=== PATIENT | female | born 1990 | race Caucasian/White ===

== ENCOUNTER → 2017-07-13 | Outpatient (CLI) | payer OTHER ==
[2014-04-19 12:26] VITALS: BMI 29.4
[~2017-07-13] MED LIST: DOCU240C67 PO; Ibuprofen PO; Lanolin TP; PER PO; PREN-127 PO
[2017-07-13 14:42] LABS: PLATELET COUNT, AUTOMATED 249 K/uL (150-450)
== END ==
LOC: LAB 14:14
PROVIDERS: ATTEND Obstetrics & Gynecology
DX: Z34.91 Encounter for supervision of normal pregnancy, unspecified, first trimester (principal)
CPT/HCPCS: 36415; 85025; 86592; 86762; 86850; 86900; 86901; 87088; 87340

== ENCOUNTER → 2017-11-02 | Outpatient (CLI) | payer OTHER ==
[2014-04-19 12:26] VITALS: BMI 29.4
--- NOTE | 2017-11-02 15:27 | RADIOLOGY IMAGING REPORT ---
FACILITY: [facility] - [place] PATIENT NAME: Georgina De La Rosa : 1990 MR: [id number] V: [id number] EXAM DATE: ORDERING PHYSICIAN: PRASHANT POWER TECHNOLOGIST: Location: [facility] - [place] Patient: Georgina De La Rosa : 1990 Visit/Account:[id number] Date of Sevice: 11/02/2017 [facility] OB ANATOMICAL SURVEY HISTORY: Supervision of high risk COMPARISON: None. TECHNIQUE: Transabdominal imaging was performed for assessment of the fetus and maternal pelvic s tructures. Transvaginal imaging was not performed. FINDINGS: Intrauterine gestations: One. presentation: Variable but in breech presentation. heart rate: 149 bpm. Amniotic fluid volume: Normal; CULLEN 14.8 cm; MVP 4.35 cm. Placenta: Posterior with no evidence of a placenta previa. Uterus: Gravid, otherwise grossly unremarkable where visualized. Maternal adnexa/ovaries: Grossly unremarkable, ovaries not visualized. Cervix: Grossly long and closed. Gestational Parameters: BPD: 4.93 cm, 28th percentile HC: 18.6 cm, 20th percentile AC: 16.11 cm, 35th percentile FL: 3.64 cm, 45th percentile Average ultrasound age (AUA): 21 weeks/ two days Estimated age based on LMP: 21 weeks/ three days Estimated weight (EFW): 414 grams +/- 61 grams Anatomic Survey: Intracranial structures, 4-chamber heart, stomach, kidneys, urinary bladder, spine, 3-vessel cord and cord insertion are unremarkable other than mild fullness of the renal pelves bilaterally ranging bet ween 4.4 and 4.9 mm in transverse dimension. Two upper and two lower extremities visualized. IMPRESSION: Single viable fetus in variable breech presentation with an estimated gestational age by measurements of 21 weeks and two days. The estimated weight is 414 g +/- 61 g There is mild fullness of the renal pelves bilaterally ranging between 4.4 and 4.9 mm in transv erse dimension. Report Dictated By: Courtney Yuan MD at 11/02/2017 3:16 PM Report E-Signed By: Courtney Yuan MD at 11/02/2017 3:22 PM WSN:[email or web address]
== END ==
LOC: RAD 08:02
PROVIDERS: ATTEND Obstetrics & Gynecology
DX: Z02.9 Encounter for administrative examinations, unspecified (principal)

== ENCOUNTER → 2017-12-15 | Outpatient (CLI) | payer OTHER ==
[2014-04-19 12:26] VITALS: BMI 29.4
[~2017-12-15] MED LIST changes: +DIPH0.5D12 IM; +SERT-1 PO; +SERT25TA87 PO
[2017-12-15 14:39] LABS: PLATELET COUNT, AUTOMATED 203 K/uL (150-450)
== END ==
LOC: LAB 07:56
PROVIDERS: ATTEND Obstetrics & Gynecology
DX: Z34.93 Encounter for supervision of normal pregnancy, unspecified, third trimester (principal)
CPT/HCPCS: 36415; 82950; 85025

== ENCOUNTER → 2017-12-31 | Outpatient (CLI) | payer OTHER ==
[2014-04-19 12:26] VITALS: BMI 29.4
[~2017-12-31] MED LIST changes: +FLU60SYR36 IM
--- NOTE | 2017-12-31 14:33 | RADIOLOGY IMAGING REPORT ---
FACILITY: [facility] - [place] PATIENT NAME: Georgina De La Rosa : 1990 MR: [id number] V: [id number] EXAM DATE: ORDERING PHYSICIAN: PRASHANT POWER TECHNOLOGIST: Location: [facility] - [place] Patient: Georgina De La Rosa : 1990 Visit/Account:[id number] Date of Sevice: 12/31/2017 [facility] OB LIMITED HISTORY: History of poor growth COMPARISON: 11/02/2017 FINDINGS: Intrauterine gestations: 1 presentation: Breech heart rate: 155 bpm Amniotic fluid volume: CULLEN 11.7 cm; Largest amniotic fluid pocket 4.2 cm Placenta: Posterior No placenta previa or retroplacental hemorrhage. Uterus: Gravid, otherwise normal Maternal adnexa: Negative Cervix: Closed Gestational Parameters: BPD: 6.7 cm; 26 weeks/ 6 days-less than 2nd percentile. Standard deviation of -2.95 HC: 26.0 cm; 28 weeks/ 3 days-less than 2nd percentile. Standard deviation of -2.24 AC: 26 cm; 30 weeks/ 2 days 56 percentile. FL: 5.5 cm; 29 weeks/ 2 days 18th percentile. Average ultrasound age (AUA): 28 weeks/ 5 days Estimated weight (EFW): 1391 grams +/- 203 grams. Fetus is in the 23rd percentile based on LMP IMPRESSION: 1. IUP of 28 weeks 5 days. SUJEY of 03/20/2018. This is behind the LMP SUJEY of 03/12/2018. It is shana roximately seven days behind the previous ultrasound that had an SUJEY calculated at 03/13/2018. There is been a significant decrease in the BPD and HC standard deviations when compared to the previous e xamination which were within normal limits. Report Dictated By: Didier Phillips MD at 12/31/2017 2:22 PM Report E-Signed By: Didier Phillips MD at 12/31/2017 2:29 PM WSN:[email or web address]
== END ==
LOC: RAD 09:20
PROVIDERS: ATTEND Obstetrics & Gynecology
DX: Z02.9 Encounter for administrative examinations, unspecified (principal)

== ENCOUNTER → 2018-02-15 | Outpatient (CLI) | payer OTHER ==
[2014-04-19 12:26] VITALS: BMI 29.4
== END ==
LOC: LAB 08:35
PROVIDERS: ATTEND Student in an Organized Health Care Education/Training Program
DX: Z02.9 Encounter for administrative examinations, unspecified (principal)

== ENCOUNTER → 2018-02-15 | Outpatient (CLI) | payer OTHER ==
[2014-04-19 12:26] VITALS: BMI 29.4
--- NOTE | 2018-02-15 12:48 | RADIOLOGY IMAGING REPORT ---
FACILITY: [facility] - [place] PATIENT NAME: Georgina De La Rosa : 1990 MR: [id number] V: [id number] EXAM DATE: ORDERING PHYSICIAN: GEORGES MON TECHNOLOGIST: Location: [facility] - [place] Patient: Georgina De La Rosa : 1990 Visit/Account:[id number] Date of Sevice: 02/15/2018 [facility] OB FOLLOW-UP [facility] OB FOLLOW-UP HISTORY: SUPERVISION OF HIGH RISK , UNSP, UNSP TRIMESTER COMPARISON: None FINDINGS: Intrauterine gestations: 1 presentation: Breech heart rate: 150 bpm Amniotic fluid volume: CULLEN 8.5 cm; Largest amniotic fluid pocket 2.9 cm Placenta: Posterior No placenta previa or retroplacental hemorrhage. Uterus: Gravid, otherwise normal Maternal adnexa: Negative Cervix: Closed Gestational Parameters: BPD: 8.3 cm; 33 weeks/ 4 days (-1.94 standard deviation) HC: 33.2 cm; 37 weeks/ 6 days (0.15) AC: 33.5 cm; 37 weeks/ 3 days (1.0) FL: 7.0 cm; 35 weeks/ 5 days (-0.61) Average ultrasound age (AUA): 36 weeks/ 1 days Estimated weight (EFW): 2965 grams +/- 433 grams IMPRESSION: IUP of 36 weeks 1 day. SUJEY of 03/14/2018. This is 2 days behind the clinical LMP SUJEY of 03/12/2018. IMPRESSION: Report Dictated By: Didier Phillips MD at 02/15/2018 12:40 PM Report E-Signed By: Didier Phillips MD at 02/15/2018 12:44 PM WSN:[email or web address]
== END ==
LOC: US 08:56
PROVIDERS: ATTEND Student in an Organized Health Care Education/Training Program
DX: O09.90 Supervision of high risk pregnancy, unspecified, unspecified trimester (principal); Z87.898 Personal history of other specified conditions
CPT/HCPCS: 87081

== ENCOUNTER 2018-03-05 05:09 | Inpatient (IN) | payer OTHER ==
[2014-04-19 12:26] VITALS: Ht 167.6 cm
[2018-03-05] VITALS (22 sets, daily range): BP systolic 85–132; BP diastolic 50–73
[2018-03-05] MEDS ORDERED: METOCLOPRAMIDE 10 MG/2 ML SDV IVP ONE (05:10)
[2018-03-05] MEDS ORDERED: CITRIC ACID/SOD CITRATE 30 ML PO ONE (05:10)
[2018-03-05] MEDS ORDERED: FAMOTIDINE 20 MG/50 ML PREMIX IVPB ONE (05:10)
[2018-03-05] MEDS ORDERED: ceFAZolin(*) 2GM/D5W 50ML 50 ML IVPB ONE (05:10)
[2018-03-05] MEDS ORDERED: MORPHINE PF 5 MG/10 ML AMP ONE (05:12)
[2018-03-05] MEDS ORDERED: ONDANSETRON 4 MG/2 ML VIAL ONE (05:12)
[2018-03-05] MEDS ORDERED: fentaNYL CITR 100 MCG/2 ML AMP ONE (05:12)
[2018-03-05] MEDS ORDERED: OXYTOCIN 30 UNIT/D5LR 500 ML 500 ML ONE (05:42)
--- NOTE | 2018-03-05 06:00 | Anesthesia OB Pre-Anes Eval ---
History of Present Illness Anesthesia Start Date: Mar 05, 2018 Anesthesia Start Time: 05:40 OB Anesthesia Diagnosis: repeat c/section, other (slow growth, ) Current Complication: obesity, other (, breech presentation) EDC: May 08, 2014 : 3 (miscarriage x 1) Para: 1 Vital Signs: Reviewed stable Pain Ratin Heart Tones: 149 Height (Inches): 66 Weight (Pounds): 205 Past Medical History Medical History: obesity, asthma, other (Anxiety/depression during ) Surgical History: , other (wisdom teeth) Previous Anesthesia: general, spinal Hx Anesthesia Reactions: No Hx Family Anesthesia Reaction: No Past Complications: obesity, other (breech presentation) Home Meds Active Scripts Oxycodone Hcl/Acetaminophen (PERCOCET 5-325 MG TABLET) 1 Each Tablet, 1 TAB PO Q4-6H PRN for pain, #30 TAB 0 Refills Prov:PRASHANT POWER MD 03/05/18 Reported Medications Vits W-Ca,Fe,Fa(<1MG) ( VITAMINS) 1 Each Tablet, 1 EACH PO DAILY, TAB 07/13/17 Allergies: Coded Allergies: No Known Drug Allergies (Unverified , 04/19/14) Anesthesia OB ROS Neurological: other (anxiety/depression Pt has Zoloft perscription but preferred to wait until after delivery, to begin medication) Eyes ROS: contacts out Pulmonary: asthma Airway Class: ll GI ROS: NPO Last Solids Date: Mar 04, 2018 Last Solids Time: 19:00 ASA Classification: 2 Assessment and Plan Anesthesia Plan: SAB Assessment: Axious, alert female, good historian, able to cooperate, supportive spouse at bedside. ARABELLA BAUGH CRNA Mar 05, 2018 06:00
[2018-03-05 06:31] LABS: PLATELET COUNT, AUTOMATED 204 K/uL (150-450)
--- NOTE | 2018-03-05 07:01 | History & Physical ---
History of Present Illness EDC per LMP: Mar 12, 2018 Estimated Gestational Age: 39 Chief Complaint Scheduled History of Present Illness 27yo at 39wks presents for scheduled repeat CD. She has hx of CD for breech and IUGR in last . She declines TOLAC. She reports FM. No UCx, VB, LOF. No preeclampsia symptoms. PNR reviewed. PNC by IMG. She has a history of depression. History Patient's Blood Type: A Positive Rubella Status: Immune Group B Strep Screen: Negative Obstetrical History: G1: 37w2d PLTCD, breech and IUGR G2: SAB G3: Current Past Medical History: PMH: Childhood asthma, depression PSH: Guild tooth, Allergies: Coded Allergies: No Known Drug Allergies (Unverified , 04/19/14) Social History: care director worker. , present and supportive. No noxious habits. Family History: FH: breast cancer Maternal Grandmother (60) FH: epilepsy FATHER FH: heart disease Maternal Grandfather FH: lung disease Maternal Grandfather FH: type 2 diabetes Maternal Grandfather Med Rec Home Meds Reported Medications Vits W-Ca,Fe,Fa(<1MG) ( VITAMINS) 1 Each Tablet, 1 EACH PO BRENDA LY, TAB 07/13/17 Review of Systems Constitutional: No Fever Neurological: No Syncope Eyes: No Vision Change Cardiovascular: No Chest Pain Respiratory: No Shortness of Breath, No Cough Gastrointestinal: No Nausea, No Vomiting, No Diarrhea Genitourinary: No Dysuria Musculoskeletal: No Pain Psychiatric: No Depression, No Anxiety Exam General Exam Vital Signs VS reviewed General Apperance: Alert/Awake/No Acute Distress Neuro: No Gross deficits Eyes: Normal Extraocular Movement & Vison Cardiovascular: Regular Rate and Rhythm Respiratory: No Respiratory Distress, Clear to Auscultation Abdomen: Gravid - Non-Tender : Normal Musculoskeletal: No Weakness/Pain Extremities: No Cyanosis,Clubbing or Edema Integumentary: Skin Intact without Lesions or Rash Psychological: Alert & Oriented X3, Appropriate Mood & Affect Fetus FHT Category: I Medical Decision Making Data Points Result Diagram: 03/05/18 0542 Pre-Admit Course Medical Record Review: Yes VTE Prophylasis: Adult Deep Vein Thrombosis/Pulmonary: No Pharmacological Contraindicati: Surgical Contraindication Mechanical Contraindications: Surgical Contraindication Assessment and Plan Problems: (1) History of delivery affecting Assessment & Plan: 27yo at 39wks presents for scheduled repeat CD. She has no questions. Will proceed to OR. (2) 39 weeks gestation of PRASHANT POWER MD Mar 05, 2018 07:01
[2018-03-05] MEDS ORDERED: KETOROLAC 30 MG/ML VIAL ONE (07:28)
[2018-03-05] MEDS: LR(*) 1000 ML BAG 1,000 ML IV SCH ×2 (08:02→08:03)
--- NOTE | 2018-03-05 08:10 | Post Operative Note ---
Operative Note - [facility]ON [employer] Operative Day Date: Mar 05, 2018 Physicians Surgeon: Mik Museum Docent: Orquidea Milian Anesthesia: Spinal, Nasima Vance Diagnosis Pre-Op Diagnosis: IUP at 39wk with hx of CD Breech presentation Post-Op Diagnosis: Same Viable female at 0732hrs, 3318g (7#5oz), Apgars 9/9 Procedure Procedure(s): RLTCD Fluids Fluids: UOP: 100cc Estimated Blood Loss: 700cc PRASHANT POWER MD Mar 05, 2018 08:10
[2018-03-05] MEDS ORDERED: OXYTOCIN 30 UNIT/LR 500 ML 500 ML IV PRN (08:11)
[2018-03-05] MEDS ORDERED: ONDANSETRON 4 MG/2 ML VIAL IV PRN (08:15)
[2018-03-05] MEDS ORDERED: PROMETHAZINE 25 MG/ML 1 ML AMP IVP PRN (08:15)
[2018-03-05] MEDS ORDERED: ACETAMINOPHEN 325 MG TAB PO PRN (08:15)
[2018-03-05] MEDS ORDERED: MAGNESIUM HYDROXIDE* 30ML UDCP PO PRN (08:15)
[2018-03-05] MEDS ORDERED: LANOLIN OINT 7 GM TUBE TP PRN (08:15)
[2018-03-05] MEDS ORDERED: OXYC-865 PO (08:43)
[2018-03-05] MEDS ORDERED: IBUP800T37 PO (08:43)
[2018-03-05] MEDS ORDERED: NALBUPHINE HCL 10 MG/ML AMP IVP PRN (08:45)
[2018-03-05] MEDS ORDERED: NALOXONE HCL 0.4 MG/ML VIAL IV PRN (08:45)
[2018-03-05] MEDS ORDERED: diphenhydrAMINE 50 MG/ML VIAL IV PRN (08:45)
[2018-03-05] MEDS: DOCUSATE CALCIUM 240 MG CAP PO SCH ×2 (09:00→21:29)
[2018-03-05] MEDS: FAMOTIDINE 20 MG TAB PO SCH ×2 (09:00→21:29)
[2018-03-05] MEDS: DLR(*) 1000 ML BAG 1,000 ML IV PRN ×2 (09:29→15:30)
--- NOTE | 2018-03-05 10:17 | OPERATIVE REPORT 1 ---
EVENT DATE: March 05, 2018 SURGEON: Jessie Houser MD ANESTHESIOLOGIST: Nasima Vance CRNA ANESTHESIA: Spinal BODY SHOP ESTIMATOR: Orquidea Milian PREOPERATIVE DIAGNOSIS 1. Intrauterine at 39 weeks with history of delivery and desire for repeat. 2. Izaiah breech presentation. POSTOPERATIVE DIAGNOSIS 1. Intrauterine at 39 weeks with history of delivery and desire for repeat. 2. Izaiah breech presentation. 3. Delivery of a viable female infant at 07:32 hours weighing 3318 grams, or 7 lbs. 5 oz. with Apgars of 9 at one minute and 9 at five minutes. PROCEDURE PERFORMED Repeat low transverse delivery. URINE OUTPUT 100 cc. ESTIMATED BLOOD LOSS 700 cc INDICATIONS FOR PROCEDURE This patient is a 27-year-old 3, para 1 011 who presented at 39 weeks for a scheduled repeat delivery. She had a history of for a breech and intrauterine growth restriction her last . She declined TOLAC, but was also found to be in the izaiah breech presentation. She therefore was prepared for a delivery. After discussing the risk, benefits, and alternatives, the patient did elect to proceed. DESCRIPTION OF PROCEDURE The patient was properly identified and administered a spinal anesthetic. She was then placed in the supine position and a Woods catheter was placed. She was then placed in the supine position with a leftward tilt and prepped and draped in the usual fashion for a lower abdominal surgery. After adequate anesthesia was confirmed, her prior scar from her Pfannenstiel incision was excised. This incision was then carried down to the level of the rectus fascia. The fascia was nicked in the midline and the incision was extended bilaterally. The rectus fascia was from the underlying rectus muscle and the peritoneum was then identified and entered sharply with Metzenbaum scissors. The peritoneal incision was then extended with a combination of blunt and electrocautery to allow delivery of the infant. A bladder blade was then placed, and the vesicouterine peritoneum was brought down with Metzenbaum scissors. The lower uterine segment was extremely thin, similar to a window. A low transverse incision was then made revealing clear amniotic fluid. The baby was confirmed to be in the izaiah breech presentation, therefore, the buttocks was delivered, followed by bilateral legs. The infant was then delivered up to the axilla and the anterior arm which was the infant's left arm was brought across the chest and delivered. The was then rotated 180 degrees and the opposite arm was delivered without difficulty, followed by the vertex. The had spontaneous cry and spontaneous movement of all four extremities. The oral pharynx and nasopharynx were bulb suctioned and the was stimulated. The cord was clamped x 2 and cut and the was passed to nursing personnel in good condition. Cord blood was then obtained and passed off the table. The placenta subsequently delivered manually intact and was passed off the table. The uterus was exteriorized and cleared of any clots or debris. The uterine incision was reapproximated using an 0 Vicryl in a running locking fashion, followed by an imbricating layer of 0 Monocryl. The uterus was replaced into the abdominal cavity at which time a hematoma was noted on the anterior aspect of the incision. This was brought back together with a single [id number] suture and was not extending any further. The pericolic gutters were cleared of clots and debris. The uterine incision was again noted to be hemostatic. The peritoneum was then reapproximated using a 3-0 Monocryl followed by reapproximation of the rectus muscle in the midline. The rectus muscle was copiously irrigated and noted to be hemostatic. The rectus fascia was then reapproximated using an 0 Vicryl working from one apices to the other. The subcutaneous tissue was copiously irrigated and reapproximated using a 3-0 Monocryl. The skin was then closed with INSORB alem, a 4x4 and pressure dressing were then placed. The patient tolerated this procedure well and recovered in labor and delivery with her infant. All sponge, needle, and instrument counts were correct at the end of this procedure. DONALDO
[2018-03-05] MEDS: KETOROLAC 30 MG/ML VIAL IVP SCH ×2 (13:27→21:29)
--- NOTE | 2018-03-05 13:27 | OB/GYN Progress Note ---
OB Subjective Progress Notes Subjective Patient is doing well. She has good pain control with spinal still. She has tolerated some by mouth. She is not yet ambulating, helms still in. Normal lochia. Breast-feeding going well so far. OB Objective Physical Exam Vital Signs Date Time Temp Pulse Resp B/P (MAP) Pulse Ox O2 Delivery O2 Flow Rate FiO2 03/05/18 13:19 98.1 83 16 103/60 (74) 96 Room Air General Appearance: Alert/Awake/No Acute Distress Neurological: No Gross deficits Eyes: Normal Extraocular Movement & Vison Cardiovascular: Normal Rhythm & Peripheral Pulses, Regular Rate and Rhythm Respiratory: No Respiratory Distress, Clear to Auscultation Abdomen: Soft, Non-Tender, Non-Distended, Fundus Firm Extremities: No Cyanosis,Clubbing or Edema Integumentary: Skin Intact without Lesions or Rash Psychological: Alert & Oriented X3, Appropriate Mood & Affect Result Diagram: 03/05/18 0542 Assessment and Plan Problems: (1) care and examination immediately after delivery Assessment & Plan: POD#0 s/p RLTCD. Routine orders. PRASHANT POWER MD Mar 05, 2018 13:27
[2018-03-06] MEDS: KETOROLAC 30 MG/ML VIAL IVP SCH (01:30)
[2018-03-06 03:45] VITALS: BP 103/46
[2018-03-06 06:14] LABS: PLATELET COUNT, AUTOMATED 147 K/uL (150-450)
[2018-03-06] MEDS: IBUPROFEN 800 MG TAB PO SCH ×3 (07:12→23:28)
[2018-03-06 08:22] VITALS: BP 107/66
--- NOTE | 2018-03-06 08:44 | OB/GYN Progress Note ---
OB Subjective Progress Notes Subjective Doing well. Pain controlled with oral medications. Tolerating regular diet. Ambulating. Voiding. Normal lochia. No preeclampsia symptoms. OB Objective Physical Exam Vital Signs Date Time Temp Pulse Resp B/P (MAP) Pulse Ox O2 Delivery O2 Flow Rate FiO2 03/06/18 03:45 98.8 79 16 103/46 (65) 95 Nasal Cannula 0.5 Intake and Output 03/06/18 07:00 Intake Total 4371 ml Output Total 5230 ml Balance -859 ml Intake IV Total 4371 ml Output Urine Total 4530 ml Estimated Blood Loss 700 ml General Appearance: Alert/Awake/No Acute Distress Neurological: No Gross deficits Eyes: Normal Extraocular Movement & Vison Cardiovascular: Normal Rhythm & Peripheral Pulses, Regular Rate and Rhythm Respiratory: No Respiratory Distress, Clear to Auscultation Abdomen: Soft, Non-Tender, Non-Distended, Fundus Firm Incision: Clean, Dry, Intact Extremities: No Cyanosis,Clubbing or Edema Integumentary: Skin Intact without Lesions or Rash Psychological: Alert & Oriented X3, Appropriate Mood & Affect Result Diagram: 03/06/18 0604 Assessment and Plan Problems: (1) care and examination immediately after delivery Assessment & Plan: POD#1 s/p RLTCD. She is doing well. Routine orders. Will monitor mood, she may need to restart Lexapro for PP depression. PRASHANT POWER MD Mar 06, 2018 08:44
[2018-03-06] MEDS: DOCUSATE CALCIUM 240 MG CAP PO SCH ×2 (12:02→20:53)
[2018-03-06] MEDS: FAMOTIDINE 20 MG TAB PO SCH ×2 (12:02→20:53)
[2018-03-06] MEDS: SIMETHICONE 80 MG CHEW CHEW PRN ×2 (13:09→20:53)
[2018-03-06 13:13] VITALS: BP 121/76
--- NOTE | 2018-03-06 14:17 | Anesthesia Post Eval Note ---
Anesthesia Post Eval Note Vital Signs 03/06/18 13:13 Temp 99.8 Pulse 74 Resp 16 B/P (MAP) 121/76 (91) Pulse Ox 95 O2 Delivery Room Air Pt able to participate in Eval: Yes Cardiovascular Status: Satisfactory Respiratory Status: Satisfactory Pain Managment: Satisfactory PO Nausea/Vomiting: Satisfactory Temperature Management: Satisfactory Mental Status: Satisfactory, Alert, Oriented X3 Post-Op Hydration Status: Satisfactory, Tolerating PO Well, Voiding w/o Difficulty Anesthesia Type: PARAMJIT VALLADARES CRNA Mar 06, 2018 14:17
[2018-03-06 16:47] VITALS: BP 118/71
[2018-03-06 19:56] VITALS: BP 108/63
[2018-03-06 23:31] VITALS: BP 124/77
[2018-03-07 03:20] VITALS: BP 111/65
--- NOTE | 2018-03-07 06:42 | OB/GYN Progress Note ---
OB Subjective Progress Notes Subjective Doing well. Pain controlled with oral medications. Tolerating regular diet. Ambulating. Voiding. Normal lochia. No preeclampsia symptoms. Her primary complaint is constipation. She has a sensation of impaction. OB Objective Physical Exam Vital Signs Date Time Temp Pulse Resp B/P (MAP) Pulse Ox O2 Delivery O2 Flow Rate FiO2 03/07/18 03:20 98.9 81 18 111/65 (80) Room Air 03/06/18 23:31 93 03/06/18 03:45 0.5 Intake and Output 03/07/18 07:00 Intake Total 100 ml Output Total 2100 ml Balance -2000 ml Intake Oral 100 ml Output Urine Total 2100 ml # Voids 2 General Appearance: Alert/Awake/No Acute Distress Neurological: No Gross deficits Eyes: Normal Extraocular Movement & Vison Cardiovascular: Normal Rhythm & Peripheral Pulses, Regular Rate and Rhythm Respiratory: No Respiratory Distress, Clear to Auscultation Abdomen: Soft, Non-Tender, Non-Distended, Fundus Firm Incision: Clean, Dry, Intact Extremities: No Cyanosis,Clubbing or Edema Integumentary: Skin Intact without Lesions or Rash Psychological: Alert & Oriented X3, Appropriate Mood & Affect Result Diagram: 03/06/18 0604 Assessment and Plan Problems: (1) care and examination immediately after delivery Assessment & Plan: POD#2 s/p RLTCD. Meeting milestones. Desires discharge to home today. Discussed routine expectations. Questions answered. Follow up in clinic in 1-2wks for check. PRASHANT POWER MD Mar 07, 2018 06:42
--- NOTE | 2018-03-07 06:43 | OB/GYN Discharge Summary ---
Discharge Summary Reason for Hosp/Final Diag: (1) care and examination immediately after delivery Hospital Course & Plan: POD#2 s/p RLTCD. Meeting milestones. Desires discharge to home today. Discussed routine expectations. Questions answered. Follow up in clinic in 1-2wks for check. Lates Vital Signs Vital Signs Date Time Temp Pulse Resp B/P (MAP) Pulse Ox O2 Delivery O2 Flow Rate FiO2 03/07/18 03:20 98.9 81 18 111/65 (80) Room Air 03/06/18 23:31 93 03/06/18 03:45 0.5 Weight (Pounds): 205 Result Diagram: 03/06/18603 Condition: Improved Discharge: Home, Self Senior Care Meds Active Scripts Oxycodone Hcl/Acetaminophen (PERCOCET 5-325 MG TABLET) 1 Each Tablet, 1 TAB PO Q4-6H PRN for pain, #30 TAB 0 Refills Prov:PRASHANT POWER MD 03/05/18 Reported Medications Vits W-Ca,Fe,Fa(<1MG) ( VITAMINS) 1 Each Tablet, 1 EACH PO DAILY, TAB 07/13/17 Follow up Referrals: IRONWORKER MACHINE OPERATOR - [place] We[place] [facility] with PRASHANT POWER MD Discharge Diet: As Tolerates Discharge Activity: Pelvic Rest PRASHANT POWER MD Mar 07, 2018 06:43
[2018-03-07] MEDS: IBUPROFEN 800 MG TAB PO SCH (07:30)
[2018-03-07 07:50] VITALS: BP 114/69
[2018-03-07] MEDS ORDERED: INFLUENZA VIRUS VAC 0.5ML SYR IM ONLY ONE (08:15)
[2018-03-07] MEDS ORDERED: DIPHTH/TETANUS/ACEL. PERTUSSIS IM ONLY ONE (08:15)
[2018-03-07] MEDS ORDERED: MEASLES,MUMP,RUBELLA VAC 0.5ML SUBQ ONE (08:15)
[2018-03-07] MEDS: DOCUSATE CALCIUM 240 MG CAP PO SCH (08:17)
[2018-03-07] MEDS: FAMOTIDINE 20 MG TAB PO SCH (08:17)
[2018-03-07 12:50] VITALS: BP 114/78
[2018-03-07] MEDS ORDERED: OXYC-865 PO ×2 (15:25→15:28)
[2018-03-08] MEDS ORDERED: OXYC-865 PO (08:28)
[2018-03-09] MEDS ORDERED: TRIA15OI20 TP (16:30)
== END 2018-03-07 13:10 | disposition home or self-care (01) | DRG 788 ==
LOC: OB 05:09
PROVIDERS: ADMIT Obstetrics & Gynecology; ATTEND Obstetrics & Gynecology
PROC: 10D00Z1 Extraction of Products of Conception, Low, Open Approach (ICD-10-PCS; principal; 2018-03-05 07:00)
DX: O34.211 Maternal care for low transverse scar from previous cesarean delivery (principal); O32.1XX0 Maternal care for breech presentation, not applicable or unspecified; K59.00 Constipation, unspecified; Z3A.39 39 weeks gestation of pregnancy; Z37.0 Single live birth
CPT/HCPCS: 36415; 85025; 86850; 86900; 86901; J0690; J1885; J2270; J2405; J2590; J2765; J3010; J3490; J7120